=== PATIENT | male | born 1995 | race Caucasian/White ===

== ENCOUNTER 2018-06-01 12:46 | Emergency (ER) | payer SELFPAY ==
[~2018-06-01] VITALS: Ht 170.2 cm; Wt 86.5 kg
[2018-06-01 13:43] VITALS: BP 107/67
[2018-06-01] MEDS ORDERED: NAPROXEN 375MG TABLET PO ONE (14:00)
== END 2018-06-01 14:33 | disposition home or self-care (01) ==
LOC: ER 13:13
DX: M54.10 Radiculopathy, site unspecified (principal); F12.10 Cannabis abuse, uncomplicated; F17.200 Nicotine dependence, unspecified, uncomplicated
CPT/HCPCS: 93005; 99283; Z7610